=== PATIENT | female | born 1985 | race African-American/Black ===

== ENCOUNTER 2021-11-14 17:30 | Emergency (ER) | payer OTHER ==
[~2021-11-14] VITALS: Ht 157.5 cm; Wt 59.0 kg
[2021-11-14] MEDS ORDERED: PENICILLIN G BENZATHINE LA 1.2 MU TBX IM STA (17:40)
[2021-11-14] MEDS ORDERED: AZITHROMYCIN250 MG PO (17:51)
[2021-11-14] MEDS ORDERED: PENICILLIN G BENZATHINE LA 1.2 MU TBX ONE (17:58)
== END 2021-11-14 18:09 | disposition home or self-care (01) ==
LOC: FSED 17:40
DX: J02.9 Acute pharyngitis, unspecified (principal); R50.9 Fever, unspecified
CPT/HCPCS: 83518; 99282; J0561

== ENCOUNTER 2022-06-27 12:46 | Emergency (ER) | payer BC ==
[~2022-06-27] VITALS: Ht 157.5 cm; Wt 63.5 kg
[~2022-06-27 12:46] MED LIST: AZITHROMYCIN250 MG PO
== END 2022-06-27 13:10 | disposition left against medical advice (07) ==
LOC: FSED 13:04
DX: B35.1 Tinea unguium (principal)

== ENCOUNTER 2025-08-24 16:42 | Emergency (ER) | payer BC ==
[~2025-08-24] VITALS: Ht 157.5 cm; Wt 69.4 kg
[2025-08-24] MEDS ORDERED: ONDANSETRON HCL 4 MG ORAL DISINTEGRATING TAB ONE (17:38)
[2025-08-24] MEDS: ONDANSETRON HCL 4 MG ORAL DISINTEGRATING TAB PO ONE (18:03)
[2025-08-24] MEDS: SODIUM CHLORIDE 0.9% 1000ML 1,000 ML IV ONE (18:34)
[2025-08-24 18:52] VITALS: PULSE 77; RESP 16; TEMP 97.4
[2025-08-24] MEDS ORDERED: POTASSIUM CHLORIDE 20 MEQ TAB CR PO ONE (18:58)
[2025-08-24] MEDS: POTASSIUM CHLORIDE 20 MEQ TAB CR PO STA (19:01)
[2025-08-24] MEDS ORDERED: ONDANSETRON ODT4 MG PO (19:30)
[2025-08-24 19:46] VITALS: BP 136/87; O2SAT 100
== END 2025-08-24 19:49 | disposition home or self-care (01) ==
LOC: FSED 16:44
DX: R11.2 Nausea with vomiting, unspecified (principal); K52.9 Noninfective gastroenteritis and colitis, unspecified; R19.5 Other fecal abnormalities; R10.9 Unspecified abdominal pain
CPT/HCPCS: 80053; 81003; 81025; 85025; 99284; Q0162